=== PATIENT | female | born 1970 | race Caucasian/White ===

== ENCOUNTER → 2016-05-04 | Outpatient (CLI) | payer OTHER ==
--- NOTE | 2016-05-04 09:21 | MA ---
Screening Digital Mammogram Clinical Indications: Routine screening. Technique: Standard cephalocaudal and mediolateral oblique projections are obtained. This examinati on is [facility]. Comparison: October 2012 and April 2010 Breast density: B; There are scattered fibroglandular densities. Findings: CAD was reviewed. There is developing density behind the right nipple. The remainder of the right and left breast are not significantly changed.. Impression: Retroareolar right developing density.. BI-RADS 0. Additional imaging required. Recommendation: Spot compression views behind the right nipple, followed by ultrasound for further e valuation.. [facility]. Negative mammography should not preclude additional workup of a clinically suspicious finding. The patient's information is entered into a reminder system with a target due date for her next mammo gram.
== END ==
LOC: BMCIMAGING 07:46
DX: Z12.31 Encounter for screening mammogram for malignant neoplasm of breast (principal)
CPT/HCPCS: G0202

== ENCOUNTER → 2016-05-11 | Outpatient (CLI) | payer OTHER | LOC: FIMAGING 10:36 | PROVIDERS: ATTEND Family Medicine | DX: R92.8 Other abnormal and inconclusive findings on diagnostic imaging of breast (principal) | CPT/HCPCS: G0206 ==